=== PATIENT | female | born 2000 | race Hispanic/Latino ===

== ENCOUNTER → 2025-02-28 | Outpatient (CLI) | payer OTHER ==
--- NOTE | 2025-03-01 01:39 | HMCIMG ---
PELVIC ULTRASOUND: CLINICAL INDICATION: Irregular menses. TECHNIQUE: Real-time, grayscale, transvaginal pelvic ultrasound was performed using Duplex scanning including arterial inflow, venous outflow, color Doppler. COMPARISON: None FINDINGS: The uterus is normal in size measuring 6.7 x 2.8 x 3.4 cm. The endometrium is measures 5 mm. An intrauterine contraceptive device is seen in the endometrial cavity. The right ovary measures 3.6 x 1.9 x 2.5 cm and demonstrates follicles, the largest measuring 1.7 x 0.7 x 1.8 cm. The left ovary measures 3.7 x 1.7 x 2.8 cm and demonstrates follicles, the largest measuring 1.3 x 0.7 x 1.2 cm. Both ovaries demonstrate color flow signal and spectral waveforms on Doppler evaluation. No adnexal mass is demonstrated. No free fluid is demonstrated on the submitted images. IMPRESSION: 1. No sonographic evidence of ovarian torsion is demonstrated on the submitted images. 2. Bilateral ovarian follicles as described. 3. Intrauterine contraceptive device in appropriate position in the endometrial cavity. /[place]ard
== END | disposition home or self-care (01) ==
LOC: RAH 15:24
PROVIDERS: ATTEND Obstetrics & Gynecology
DX: N83.02 Follicular cyst of left ovary (principal); N83.01 Follicular cyst of right ovary; N92.6 Irregular menstruation, unspecified; Z97.5 Presence of (intrauterine) contraceptive device
CPT/HCPCS: 76830